=== PATIENT | male | born 1965 | race Caucasian/White ===

== ENCOUNTER 2021-06-21 19:07 | Emergency (ER) | payer SELFPAY ==
[~2021-06-21] VITALS: Ht 180.3 cm; Wt 81.8 kg
[2021-06-21 19:35] VITALS: BP 119/73
[2021-06-21] MEDS ORDERED: GABA-1181 PO (19:49)
[2021-06-21] MEDS ORDERED: METF-960 PO (19:49)
[2021-06-21] MEDS ORDERED: BACITRACIN 0.9 GM PACKET OINTMENT TP ONE (20:00)
[2021-06-21] MEDS ORDERED: ACETAMINOPHEN 500 MG TABLET PO ONE (20:00)
== END 2021-06-21 20:00 | disposition home or self-care (01) ==
LOC: EMS 19:09
DX: L84 Corns and callosities (principal); E11.9 Type 2 diabetes mellitus without complications; F17.210 Nicotine dependence, cigarettes, uncomplicated; F19.90 Other psychoactive substance use, unspecified, uncomplicated; Z59.0 Homelessness; Z79.4 Long term (current) use of insulin
CPT/HCPCS: 99283